=== PATIENT | male | born 1975 | race Caucasian/White ===

== ENCOUNTER 2018-09-01 05:49 | Outpatient (CLI) | payer BC ==
[~2018-09-01] VITALS: Ht 167.6 cm; Wt 54.4 kg
[~2018-09-01 05:49] MED LIST: ASPI1TAB22 PO; NEOM28.35 TP
== END 2018-09-01 11:38 | disposition home or self-care (01) ==
LOC: PREOP 05:49
PROVIDERS: ATTEND Internal Medicine
DX: Z01.818 Encounter for other preprocedural examination (principal)

== ENCOUNTER 2018-09-04 07:09 | Day surgery (SDC) | payer BC ==
--- NOTE | 2018-09-02 10:19 | HISTORY AND PHYSICAL ---
DATE OF SERVICE: COLONOSCOPY HISTORY AND PHYSICAL DATE OF ADMISSION: 09/04/2018. HISTORY OF PRESENT ILLNESS: The patient is a 42-year-old white male, who presented to the office on 08/12. This is a new patient evaluation. He reports over the past 48 hours, he had had nausea, vomiting and several loose nonbloody stools. He has two young children, who were sick with similar symptoms. He denied rigors or fever and had been able to keep some liquids down this morning. He has had no lightheadedness. Does report some generalized fatigue. Prior to this, he had been feeling well. He had originally made the visit to set up colonoscopy as there is a strong family history for colon cancer with family history of hereditary nonpolyposis cancer syndrome. He has had one cousin, who in her 30s secondary to colon cancer. I take care of his father and I have removed countless adenomatous colonic polyps without history of cancer thus far. There are multiple other family members, who have been diagnosed with colon cancer, all on his father's side of the family. He has noted previous to the last 48 hours, he had not had any bowel habit change, change in weight, abdominal pain, melena or bright red blood per rectum. He does report some right forearm pain with grasping for the past several months. He works at [employer] and does a lot of repetitive lifting in his work. It is not keeping him up at night. 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 As a child, he had hepatitis B that cleared with no evidence for chronic hepatitis. PAST SURGICAL HISTORY: Other than HPV related laser therapy, he has had wisdom tooth extraction in the past and a vasectomy. SOCIAL HISTORY: He works at [employer]. He had a [id number]-[id number] smoking history and quit 4 years ago. He still occasionally vapes have a piece with no other nicotine products over the past four years. He reports six to eight beers weekly. PHYSICAL EXAMINATION: GENERAL: Reveals a thin white male, who did not appear to be in acute distress. VITAL SIGNS: Blood pressure was 120/86, weight 121 pounds, height 5 feet and 7.5 inches tall. HEENT: Unremarkable. Mucous membranes were moist. Oral cavity reveals Mallampati class 2 oropharyngeal configuration. No erythema or exudate are noted. No oral ulceration is noted. Ear canals are clear with normal TMs. NECK: Revealed no JVD, adenopathy or bruits. CHEST: Clear to auscultation. CARDIOVASCULAR: Reveals a regular rate and rhythm without murmur, S3 or S4. ABDOMEN: Soft, supple without mass, organomegaly or tenderness. Bowel sounds are normoactive. EXTREMITIES: Reveal no cyanosis, clubbing or edema. SKIN: Evaluation reveals no suspicious nevi. ASSESSMENT AND PLAN: 1. Acute likely viral gastroenteritis. Discussed BRAT diet, fluid, sports drinks or Pedialyte, expected continued improvement. 2. Family history of hereditary nonpolyposis cancer syndrome. For this reason, the patient is being set up for colonoscopy on 09/04. Prep instructions with the Suprep kit were given and questions were answered. 3. Right lateral epicondylitis, advised avoidance of nonsteroidals for now until gastroenteritis, resolves, then p.r.n. ibuprofen and more importantly discussed the importance of wearing a forearm brace with discussion on appropriate use. If symptoms are not improving over the next 1 to 2 months, make a consideration for a steroid injection. Job ID: [id number] DocumentID: [id number] Dictated Date: 08/14/2018 10:25:34 Manager Of Compliance Date: 08/14/2018 11:05:14 Dictated By: JOEY CERVANTES MD
[~2018-09-04] VITALS: Ht 167.6 cm; Wt 54.4 kg
[2018-09-04] MEDS ORDERED: D5 LR IV SOLUTION 1,000 ML IV STA (07:12)
[2018-09-04] MEDS ORDERED: D5 LR IV SOLUTION 1,000 ML IV ONE (07:14)
[2018-09-04] MEDS ORDERED: MIDAZOLAM 2 MG/2 ML (VERSED) VIAL IVP ONE (07:15)
[2018-09-04] MEDS ORDERED: LIDOCAINE JELLY 2% 6 ML SYRINGE MM PRN (07:15)
[2018-09-04] MEDS ORDERED: fentaNYL INJECTION 100 MCG/2 ML AMP IVP ONE (07:15)
[2018-09-04 07:29] VITALS: BP 145/96
[2018-09-04] MEDS ORDERED: LIDOCAINE JELLY 2% 6 ML SYRINGE ONE (07:58)
[2018-09-04] MEDS ORDERED: MIDAZOLAM 2 MG/2 ML (VERSED) VIAL ONE ×3 (07:58→08:42)
[2018-09-04] MEDS ORDERED: fentaNYL INJECTION 100 MCG/2 ML AMP ONE (07:58)
[2018-09-04 09:05] VITALS: BP 120/79
--- NOTE | 2018-09-04 09:20 | Pre-Op Note & Conscious Sedat ---
Pre-Operative Progress Note H&P Reviewed The H&P was reviewed, patient examined and no changes noted. Date H&P Reviewed: Sep 04, 2018 Time H&P Reviewed: 07:40 Conscious Sedation Pre-Proced ASA Score 2 For ASA 3 and 4: Consider anesthesia and medical clearance. Also, for patients with a history of failed moderate sedation consider anesthesia. Airway Lungs Heart ASA score ASA 1: a normal healthy patient ASA 2: a patient with a mild systemic disease (mid diabetes, controlled hypertension, obesity ASA 3: a patient with a severe systemic disease that limits activity (angina , COPD, prior Myocardial infarction) ASA 4: a patient with an incapacitating disease that is a constant threat to life (CHF, renal failure) ASA 5: a moribund patient not expected to survive 24 hrs. (ruptured aneurysm) ASA 6: a declared brain- patient whose organs are being harvested. For emergent operations, add the letter E after the classification Mallampati Classification Grade 2 Sedation Plan Analgesia, Amnesia, Plan communicated to team members, Discussed options with patient/fam, Discussed risks with patient/fam The patient is an appropriate candidate to undergo the planned procedure, sedation, and anesthesia. The patient immediately re-assessed prior to indication. JOEY CERVANTES MD Sep 04, 2018 09:20
[2018-09-04 09:35] VITALS: BP 128/88
[2018-09-04 09:45] VITALS: BP 128/88
--- NOTE | 2018-09-04 18:36 | OPERATIVE REPORT ---
DATE OF SERVICE: 09/04/2018 COLONOSCOPY SUMMARY INDICATION FOR THE PROCEDURE: Screening. This was done at an early age due to family history for hereditary nonpolyposis cancer syndrome with several second degree relatives having been diagnosed with colon cancer in their 30s and 40s with father not meeting criteria for the diagnosis without history of colon cancer, but multiple adenomas have been removed over his lifetime. The patient was placed in the left lateral decubitus position. Prior to undergoing colonoscopy, digital rectal evaluation was performed. Anal sphincter tone was normal and the perianal reflex was intact. No abnormalities were noted on digital inspection of the anal canal or distal rectal vault. There were some prominent perianal skin folds, but no evidence for active hemorrhoids. The colonoscope was then inserted into the rectum and under direct visualization, advanced to the cecum. The cecum was identified by identification of the ileocecal valve and cecal strap. Photographic documentation was obtained. The patient tolerated the procedure well. FINDINGS: There is no evidence for internal or external hemorrhoids and the rectum and sigmoid colon were unremarkable. No diverticulum were noted. The descending colon and splenic flexure were unremarkable. Present in the distal transverse colon was a diminutive 3 mm sessile adenomatous appearing polyp, it was biopsied and ablated and submitted for histopathology with no subsequent blood loss. The remainder of the transverse colon was unremarkable. The hepatic flexure was normal. Present in the proximal ascending colon was a diminutive 1 mm adenomatous appearing polyp. It was biopsied and ablated and submitted for histopathology. The cecum and the colon was unremarkable. ASSESSMENT: Two small polyps were removed today, one from the distal transverse colon, the other one from the proximal ascending colon. No other abnormalities were noted on today's procedure. We will await histopathology report, but we will likely be recommending an early survalence interval considering the patient's family history. Job ID: [id number] DocumentID: [id number] Dictated Date: 09/04/2018 11:09:14 Assembly Machine Tool Setter Date: 09/04/2018 18:35:37 Dictated By: MD TORRI RODRIGUEZ
== END 2018-09-04 09:50 | disposition home or self-care (01) ==
LOC: ENDO 07:09
PROVIDERS: ATTEND Internal Medicine
DX: Z12.11 Encounter for screening for malignant neoplasm of colon (principal); D12.2 Benign neoplasm of ascending colon; D12.3 Benign neoplasm of transverse colon; Z80.0 Family history of malignant neoplasm of digestive organs; Z83.71 Family history of colonic polyps; Z87.891 Personal history of nicotine dependence; Z86.19 Personal history of other infectious and parasitic diseases

== ENCOUNTER → 2019-07-27 | Outpatient (CLI) | payer BC ==
--- NOTE | 2019-07-27 16:58 | Diagnostic Imaging Report ---
PROCEDURE: US Scrotum. TECHNIQUE: Multiple real-time grayscale images were obtained over the scrotum in various projections bilaterally. INDICATION: Bilateral testicular swelling. COMPARISON: None. FINDINGS: The right testicle measures 4.4 x 1.8 x 2.5 cm. Vascularity appears normal. No masses are seen. No significant hydrocele is seen. The epididymis demonstrates a 6 mm cyst at the head, with no significantly increased vascularity. The left testicle measures 3.2 x 1.8 x 2.9 cm. Vascularity appears mildly increased compared to the right side. No masses are seen. There is no significant hydrocele. The epididymis demonstrates increased vascularity. There are also prominent vessels on the left which are more pronounced with Valsalva, consistent with a small varicocele. No evidence of torsion is seen bilaterally. IMPRESSION: 1. Mildly increased vascularity in the left epididymis and testicle, may represent a mild epididymo-orchitis. 2. Small left varicocele. 3. 6 mm right epididymal head cyst. Dictated by: Dictated on workstation # [id number]
== END ==
LOC: RAD 15:21
PROVIDERS: ATTEND Surgery
DX: I86.1 Scrotal varices (principal); N50.3 Cyst of epididymis
CPT/HCPCS: 76870